=== PATIENT | male | born 1990 ===

== ENCOUNTER 2017-05-26 21:06 | Emergency (ER) | payer OTHER ==
[2017-05-26] MEDS ORDERED: Al Hydrox/Mg Hydrox/Simet LIQ* 30 ML UDC PO ONE (23:00)
[2017-05-26] MEDS ORDERED: Lidocaine 2% VISCOUS* 15 ML UDC PO ONE (23:00)
[2017-05-26] MEDS ORDERED: Lidocaine 2% VISCOUS* 15 ML UDC ONE (23:21)
[2017-05-27 01:07] VITALS: BP 122/78
--- NOTE | 2017-05-27 04:04 | ED ---
Mallory Carter Julia, scribed for Jeremy Cm MD on 05/26/17 at 2312 . Throat Pain/Nasal Congestion - HPI Summary HPI Summary: This patient is a 27 year old M presenting to [facility] because he feels cereal stuck in his throat since 20:00. Pt reports throat pain. The patient rates the pain 5/10 in severity. He has been able to swallow but with discomfort. Pt denies coughing or vomiting blood. He has attempted to throw up to remove the cereal but was unsuccessful. - History of Current Complaint Chief Complaint: EDGeneral Time Seen by Provider: 05/26/17 22:59 Hx Obtained From: Patient Onset/Duration: Sudden Onset Associated Signs And Symptoms: Positive: FB Sensation Cough: None - Allergies/Home Medications Allergies/Adverse Reactions: Allergies Allergy/AdvReac Type Severity Reaction Status Date / Time No Known Allergies Allergy Verified 05/26/17 21:47 PMH/Surg Hx/FS Hx/Imm Hx Opthamlomology History: Denies: Hx Legally Blind EENT History: Reports: Hx Seasonal Allergies Denies: Hx Deafness Infectious Disease History: No Infectious Disease History: Denies: Traveled Outside the [place] in Last 30 Days - Social History Alcohol Use: None Substance Use Type: Reports: None Smoking Status (MU): Never Smoked Tobacco Review of Systems Positive: Sore Throat, Other - foriegn body sensation Negative: Cough - with blood Negative: Vomiting - blood All Other Systems Reviewed And Are Negative: Yes Physical Exam - Summary Physical Exam Summary: Appearance: Well appearing, no pain distress Skin: warm, dry, reflects adequate perfusion Head/face: normal Eyes: EOMI, LYNDSEY ENT: no stridor, no blood, no swelling, nml uvula, white mucous Neck: supple, non-tender Respiratory: CTA, breath sounds present Cardiovascular: RRR, pulses symmetrical Abdomen: non-tender, soft Bowel: present Musculoskeletal: normal, strength/ROM intact Neuro: normal, sensory motor intact, A&Ox3 Triage Information Reviewed: Yes Vital Signs On Initial Exam: Initial Vitals Temp Pulse Resp BP Pulse Ox 98.6 F 73 16 115/66 100 05/26/17 21:35 05/26/17 21:35 05/26/17 21:35 05/26/17 21:35 05/26/17 21:35 Vital Signs Reviewed: Yes Diagnostics - Vital Signs Vital Signs Temp Pulse Resp BP Pulse Ox 05/26/17 23:05 75 100 05/26/17 23:03 132/74 05/26/17 21:35 98.6 F 73 16 115/66 100 - Laboratory Lab Statement: Any lab studies that have been ordered have been reviewed, and results considered in the medical decision making process. - Radiology Neck XR Radiology Interpretation Completed By: ED Physician EENT Course/Dx - Course Course Of Treatment: Pt with discomfort after eating cereal tonight. Pt reports throat pain without FB sensation.. The patient rates the pain 5/10 in severity. He has been able to swallow but with discomfort. Pt denies coughing or vomiting blood. Neck XR reveal no acute concern. Pt given Maalox and Lidocaine with relief. Rx for [facility]. [facility]. - Differential Diagnoses Differential Diagnoses: Abrasion, Foreign Body, Glen's Angina - Diagnoses Provider Diagnoses: Abrasion of pharynx Discharge - Discharge Plan Condition: Good Disposition: HOME Prescriptions: Lidocaine 2% VISCOUS* [Xylocaine 2% Viscous*] 15 ml SWISH SWAL Q4H PRN #1 btl PRN Reason: Pain Patient Education Materials: Abrasion (ED) Forms: *School Release Referrals: [facility] - Ricardo BLANTON [Primary Care Provider] - Additional Instructions: Liquid diet. Cool liquids may help. Return with swelling, drooling, fever, worse , new symptoms or other concerns. Call Health Center for follow up in the morning. The documentation as recorded by the Mallory toth Julia accurately reflects the service I personally performed and the decisions made by , Jeremy Cm MD.
--- NOTE | 2017-05-27 07:45 | RAD ---
HISTORY: Foreign body sensation COMPARISONS: None VIEWS: 2, frontal and lateral views of the neck FINDINGS: The cervical spine is visualized from the skull base through T1. There is straightening of the cervical lordosis. No other osseous abnormalities identified. The prevertebral soft tissues are normal. The epiglottis is normal. There is continuous air column from the pharynx the trachea. The lung apices are clear. The skull base is unremarkable. There is no radiopaque foreign body. IMPRESSION: STRAIGHTENING OF THE CERVICAL LORDOSIS. NO RADIO OPAQUE FOREIGN BODY. OTHERWISE UNREMARKABLE SOFT TISSUES OF THE NECK.
== END 2017-05-27 00:25 | disposition home or self-care (01) ==
LOC: ED 21:06
DX: S10.11XA Abrasion of throat, initial encounter (principal); J02.9 Acute pharyngitis, unspecified; X58.XXXA Exposure to other specified factors, initial encounter; Y92.9 Unspecified place or not applicable
CPT/HCPCS: 70360; 99282; A9270-GY

== ENCOUNTER 2018-01-19 17:18 | Emergency (ER) | payer OTHER ==
[2018-01-19 17:31] VITALS: BP 120/72
--- NOTE | 2018-01-19 18:20 | UC ---
Complaint Male HPI - HPI Summary HPI Summary: The patient is a 27 year old male presenting to the with a chief complaint of testicular pain, onset about 2 weeks ago. He states that when he was sitting down, he felt pressure between his scrotum and anus, and is unsure if it is prostate or testicular. The patient has been going to the bathroom more often, and urinating helps relieve it. He states he has a pmhx of Kawasaki disease, a blood infection, low iron, and low blood pressure, as well as surgical history of deviated septum repair in 2013. The patient does not drink, smoke, or do drugs. His family history consists of alcohol and tobacco issues on his dads side, and prostate issues, type 1 DM, cancer and MHI on his moms side. - History of Current Complaint Chief Complaint: UCGU Stated Complaint: PERSONAL Time Seen by Provider: 01/19/18 17:25 Hx Obtained From: Patient Onset/Duration: Gradual Onset, Lasting Weeks, Still Present Timing: Constant Severity Initially: Mild Severity Currently: None Pain Intensity: 0 Pain Scale Used: 0-10 Numeric Location: Other - between scrotum and testicles Character: Constant Pressure Aggravating Factor(s): Other - sitting for long periods of time Alleviating Factor(s): Movement - Allergies/Home Medications Allergies/Adverse Reactions: Allergies Allergy/AdvReac Type Severity Reaction Status Date / Time No Known Allergies Allergy Verified 01/19/18 18:52 PMH/Surg Hx/FS Hx/Imm Hx Previously Healthy: No - kawasaki disease Cardiovascular History: Other Other Cardiovascular History: anemia, hypotension, blood infection when he was 3 Respiratory History: COPD - negative - Surgical History Surgical History: Yes Surgery Procedure, Year, and Place: Deviated septum 2013 - Family History Known Family History: Positive: Diabetes, Other - EtOH and tobacco issues on dad 's side, MHI and cancer on mom's - Social History Alcohol Use: None Substance Use Type: None Smoking Status (MU): Never Smoked Tobacco Review of Systems Genitourinary: Frequency, Other - pressure between scrotum and testicles Musculoskeletal: Myalgia - pelvic pressure between scrotum and anus All Other Systems Reviewed And Are Negative: Yes Physical Exam - Summary Physical Exam Summary: VITAL SIGNS: Reviewed. GENERAL: Patient is a well-developed and nourished male who is lying comfortably. Patient is not in any acute respiratory distress. HEAD AND FACE: Normocephalic EYES: PERRLA, EOMI x 2. EARS: Hearing grossly intact. MOUTH: Oropharynx within normal limits. NECK: Supple, trachea is midline, no adenopathy, no JVD, no carotid bruit. CHEST: Symmetric, no tenderness at palpation LUNGS: Clear to auscultation bilaterally. No wheezing or crackles. CVS: Regular rate and rhythm, S1 and S2 present, no murmurs or gallops appreciated. ABDOMEN: Soft, non-tender. Bowel sounds are normal. No abdominal abnormal pulsations. EXTREMITIES: Full ROM in all major joints, no edema, no cyanosis or clubbing. NEURO: Alert and oriented x 3. No acute neurological deficits. Speech is normal and follows commands. SKIN: Dry and warm : Testicles are descended. No masses, good reflex. Slight tenderness in the R testicle. No abnormalities. Triage Information Reviewed: Yes Vital Signs: Initial Vital Signs Temp 98.8 F 01/19/18 17:24 Pulse 85 01/19/18 17:24 Resp 18 01/19/18 17:24 BP 120/72 01/19/18 17:24 Pulse Ox 100 01/19/18 17:24 Vital Signs Reviewed: Yes Complaint Male Course/Dx - Course Course Of Treatment: This patient is a 27-year-old male who presents to the urgent care with a chief complaint of having bilateral testicular pain. He is having this pain for the last 2 weeks. He does not have any difficulty urinating and he denies any penile discharge. Physical exam unremarkable except for some tenderness in the testicles at palpation however there is no masses and has good cremasteric reflex. I believe that the patient may benefit from an testicular ultrasound therefore the patient will be discharged to the emergency department for further workup and management. Patient declined ambulance transfer. - Differential Dx/Diagnosis Provider Diagnoses: Testicular pain Discharge - Sign-Out/Discharge Documenting (check all that apply): Patient Departure All imaging exams completed and their final reports reviewed: No Studies - Discharge Plan Condition: Stable Disposition: HOME-RECOMMEND TO ED Patient Education Materials: Testicle Pain (ED), Scrotal Pain (ED) Referrals: [facility] - Ricardo BLANTON [Primary Care Provider] - Additional Instructions: Patient will be discharged to the emergency department for further workup and management. Patient declined ambulance transfer. - Billing Disposition and Condition Condition: STABLE Disposition: Home-Recommend to ED - Attestation Statements Document Initiated by Scribe: Yes Documenting Scribe: Sakina Jones Provider For Whom Alley is Documenting (Include Credential): Fran Cheng MD. Scribe Attestation: ISakina, scribed for Fran Cheng MD. on 01/19/18 at 2123. Scribe Documentation Reviewed: Yes Provider Attestation: The documentation as recorded by the scribe, Sakina Jones accurately reflects the service I personally performed and the decisions made by me, Fran Cheng MD.
== END 2018-01-19 18:17 | disposition home health service (06) ==
LOC: UCEAST 17:18
DX: N50.812 Left testicular pain (principal); R35.0 Frequency of micturition
CPT/HCPCS: 81003; 99212; G0463

== ENCOUNTER 2018-01-19 18:40 | Emergency (ER) | payer OTHER ==
--- NOTE | 2018-01-19 20:36 | RAD ---
EXAM: US Scrotum CLINICAL HISTORY: 27 years old, male; Pain; Groin pain and scrotum pain TECHNIQUE: Real-time ultrasound of the scrotum with color Doppler and image documentation. COMPARISON: No relevant prior studies available. FINDINGS: Right testicle: The right testis measures 4.6 x 2.2 x 2.9 cm. No intratesticular masses. Normal flow on Doppler. No torsion. Left testicle: The left testis measures 4.3 x 2.2 x 2.6 cm. No intratesticular masses. Normal flow seen on Doppler. No torsion. Epididymides: Unremarkable. Scrotum: Very minimal fluid in the tunica vaginalis. IMPRESSION: Normal testicular ultrasound.
[2018-01-19] MEDS ORDERED: Ibuprofen TAB* 400 MG PO ONE (21:27)
[2018-01-19] MEDS ORDERED: Ciprofloxacin TAB* 250 MG PO ONE (21:28)
--- NOTE | 2018-01-19 21:29 | ED ---
GI/ HPI - HPI Summary HPI Summary: This patient is a 27 year old M presenting to [facility] with a chief complaint of pain at the perineum region since earlier today. PT received a US upon entering [facility]. He reports sitting for long periods of time, and he feels discomfort around his genitals. PT is unsure whether the pain arises at the testicular region but generally discusses the perineum region. He is frequently attending the bathroom and denies sores, lesions, bumps and bleeding at or near the testicles. He also denies fevers. Pt reports urinary symptoms described as straining when attempting to urinate. Pt has not yet been sexual active. - History of Current Complaint Chief Complaint: EDUrogenitalProblems Time Seen by Provider: 01/19/18 21:12 Stated Complaint: TESTICULAR/PROSTATE PAIN Onset/Duration: Still Present Current Severity: None Pain Intensity: 0 Location of Pain: Other - Peritoneal Pain Characteristics: Other: - Straining when attemptin to urinate Associated Signs and Symptoms: Positive: Other: - Denies sores, lesions, bumps and bleeding. Frequently urinating. Negative: Fever Aggravating Factor(s): Nothing Alleviating Factor(s): Nothing - Allergy/Home Medications Allergies/Adverse Reactions: Allergies Allergy/AdvReac Type Severity Reaction Status Date / Time No Known Allergies Allergy Verified 01/19/18 18:52 PMH/Surg Hx/FS Hx/Imm Hx Sensory History: Denies: Hx Legally Blind, Hx Deafness Opthamlomology History: Denies: Hx Legally Blind - Surgical History Surgery Procedure, Year, and Place: Deviated 2013 Infectious Disease History: No Infectious Disease History: Denies: Traveled Outside the [place] in Last 30 Days - Family History Known Family History: Positive: Diabetes, Other - EtOH and tobacco issues on dad 's side, MHI and cancer on mom's Family History: No Chrons disease or colitis,. Father Prostate issues. Mother common UTI - Social History Occupation: Student Lives: Alone Alcohol Use: None Substance Use Type: Reports: None Smoking Status (MU): Never Smoked Tobacco Review of Systems Negative: Fever Eyes: Negative ENT: Negative Cardiovascular: Negative Respiratory: Negative Gastrointestinal: Negative Genitourinary: Other - Denies sores, lesions, bumps or bleeding Positive: other - Frequently urinating and peritoneal pain Skin: Negative Neurological: Negative Psychological: Normal All Other Systems Reviewed And Are Negative: Yes Physical Exam - Summary Physical Exam Summary: Appearance: Well appearing, no pain distress Skin: warm, dry, reflects adequate perfusion Head/face: normal Eyes: EOMI, LYNDSEY ENT: mucous membranes moist Neck: supple, non-tender Respiratory: CTA, breath sounds present Cardiovascular: RRR, pulses symmetrical Abdomen: non-tender, soft Bowel Sounds: present Musculoskeletal: normal, strength/ROM intact Neuro: normal, sensory motor intact, A&Ox3 Genitourinary: No hernia; No rash or lesion; no hemorrhoids; no hernia sacs felt Triage Information Reviewed: Yes Vital Signs On Initial Exam: Initial Vitals Temp Pulse Resp BP Pulse Ox 99.1 F 72 14 114/79 99 01/19/18 18:49 01/19/18 18:49 01/19/18 18:49 01/19/18 18:49 01/19/18 18:49 Vital Signs Reviewed: Yes Diagnostics - Vital Signs Vital Signs Temp Pulse Resp BP Pulse Ox 01/19/18 20:44 99.1 F 79 16 116/66 99 01/19/18 18:49 99.1 F 72 14 114/79 99 - Laboratory Lab Statement: Any lab studies that have been ordered have been reviewed, and results considered in the medical decision making process. - Ultrasound No standard instances Ultrasound Interpretation Completed By: ED Physician - Testicualr Ultrasound reveals Normal Testicular US as per radiologist. GIGU Course/Dx - Course Course Of Treatment: Patient with perineal pain without evidence of lesion. The patient is not sexually active. His urine is negative and his testicular ultrasound is normal. There is no palpable hernia. He has no fever. Possible prostatitis so we will start on Cipro. Follow-up with Replaced by [facility]. - Diagnoses Differential Diagnoses - Male: Other - UTI, prostatitis, perineal abscess, herpes, hernia,. Perianal abscess Provider Diagnoses: Perineum pain, male, Prostatitis Discharge - Sign-Out/Discharge Documenting (check all that apply): Patient Departure - Patient Discharge - Discharge Plan Condition: Stable Disposition: HOME Prescriptions: Ciprofloxacin TAB* [Cipro 500 MG TAB*] 500 mg PO BID #40 tab Patient Education Materials: Prostatitis (ED) Referrals: [facility] [Provider Group] Amador Noriega MD [Medical Doctor] - Additional Instructions: Drink plenty of fluids. Tylenol as needed for discomfort. Return with fever, difficulty urinating, new symptoms or other concerns as discussed. Follow-up with Replaced by [facility] in next 2 days. If you are still having trouble follow-up with urology. - Billing Disposition and Condition Condition: STABLE Disposition: Home - Attestation Statements Document Initiated by Scribe: Yes Documenting Scribe: Carrington Anderson Provider For Whom Scribe is Documenting (Include Credential): Dr. Cm Scribe Attestation: ICarrington, scribed for Dr. Cm on 01/20/18 at 0144. Scribe Documentation Reviewed: Yes Provider Attestation: The documentation as recorded by the Carrington toth accurately reflects the service I personally performed and the decisions made by , Dr. Cm
[2018-01-19 21:47] LABS: Urine Appearance Clear; Urine Blood 1+ (Negative); Urine Color Yellow; Urine Ketones Negative (Negative); Urine Protein Negative (Negative); Urine Red Blood Cell Trace(0-2/hpf) (Absent); Urine Specific Gravity 1.023 (1.010-1.030); Urine Urobilinogen Negative (Negative); Urine White Blood Cell Trace(0-5/hpf) (Absent)
[2018-01-19 22:19] VITALS: BP 123/73
== END 2018-01-19 22:12 | disposition home or self-care (01) ==
LOC: ED 18:40
DX: R10.2 Pelvic and perineal pain (principal); N41.9 Inflammatory disease of prostate, unspecified
CPT/HCPCS: 76870; 81003; 81015; 87086; 87491; 87591; 99283; A9270-GY